=== PATIENT | female | born 1985 | race Caucasian/White ===

== ENCOUNTER → 2020-03-23 10:26 | Outpatient (BNVA) | payer BC, SELFPAY | PROVIDERS: Family Provider Nurse Practitioner Family; Visit Provider Family Medicine | DX: R53.83 Other fatigue (principal); Z80.8 Family history of malignant neoplasm of other organs or systems; Z13.29 Encounter for screening for other suspected endocrine disorder | CPT/HCPCS: 80053; 80061; 82607; 82652; 84443; 85025 ==

== ENCOUNTER 2020-07-11 07:14 | Outpatient (CLI) | payer BC, SELFPAY | END 2020-07-11 07:15 | disposition home or self-care (01) | LOC: LAB 07:17 | PROVIDERS: Visit Provider Family Medicine | DX: R53.83 Other fatigue (principal) | CPT/HCPCS: 82533 ==

== ENCOUNTER → 2021-11-23 11:31 | Outpatient (BNVA) | payer BC, SELFPAY | PROVIDERS: PCP Family Medicine; Visit Provider Family Medicine | DX: F41.1 Generalized anxiety disorder (principal); R05.3 Chronic cough; U09.9 Post COVID-19 condition, unspecified | CPT/HCPCS: 71046 ==

== ENCOUNTER → 2022-01-02 11:27 | Outpatient (BNVA) | payer BC, SELFPAY | PROVIDERS: PCP Family Medicine; Visit Provider Family Medicine | DX: F41.1 Generalized anxiety disorder (principal); R53.83 Other fatigue; F51.04 Psychophysiologic insomnia; R53.82 Chronic fatigue, unspecified | CPT/HCPCS: 80053; 82607; 82652; 84443; 85025; 85651; 86140 ==

== ENCOUNTER 2022-02-08 15:53 | Emergency (ER) | payer BC, SELFPAY ==
--- NOTE | 2022-02-08 15:57 | XRR_ITS ---
PROCEDURE INFORMATION: Exam: XR Chest Exam date and time: 02/08/2022 5:43 PM Age: 36 years old Clinical indication: Chest wall pain; Additional info: Chest pain TECHNIQUE: Imaging protocol: Radiologic exam of the chest. Views: 1 view. COMPARISON: CR XR chest 2V* [id number] 11/23/2021 11:44 AM FINDINGS: Lungs: The lungs are clear. Pleural spaces: Unremarkable. No pleural effusion. No pneumothorax. Heart/Mediastinum: Unremarkable. No cardiomegaly. Bones/joints: Unremarkable. XR/XR chest 1V portable [id number] IMPRESSION: No acute cardiopulmonary abnormality.
[2022-02-08 15:58] VITALS: BP 114/81; PULSE 79; RESP 14; TEMP 36.7; O2SAT 97; BMI 31.7
--- NOTE | 2022-02-08 17:50 | ECG_ITS ---
[facility] Test Date: 2022-02-08 Pat Name: Cherrie Robles Department: Room: Gender: Female Sales Advisor: : 1985 Requested By: Anna Morales Order Number: [id number] Stevie MD: Gene Jackson M.D. Measurements Intervals [place] Rate: 67 P: 25 KS: 172 QRS: 23 QRSD: 84 T: 5 QT: 366 QTc: 388 Interpretive Statements SINUS RHYTHM Compared to ECG 02/08/2022 16:10:17 No significant changes Electronically Signed On 02-08-2022 21:29:41 CDT by Gene Jackson M.D. [id number]
--- NOTE | 2022-02-08 18:30 | W.ED.CHESTPA ---
HPI - Chest Pain General: Chief Complaint: Chest Pain Stated Complaint: Chest pain Time Seen by Provider: 02/08/22 17:38 Source: patient Mode of arrival: ambulatory Limitations: no limitations History of Present Illness: 36-year-old female who states that over the last few months she has been having these intermittent sharp chest pains. States she started having pains again today states that very sharp pain worse with deep breaths and. She has a history of mitral valve prolapse no history of heart issues otherwise. She denies any worsening improving factors. Associated symptoms: Deny abdominal pain, dyspnea, fever(s), nausea or vomiting Review of Systems Const: Denies: fever(s), chills, body aches or change in appetite Eyes: Denies: blurry vision or eye discomfort ENMT: Denies: throat pain or dental pain Card: Reports: chest pain Resp: Denies: dyspnea GI: Denies: abdominal pain, nausea, vomiting or diarrhea : Denies: dysuria Musc: Denies: neck pain or back pain Skin/Breast: Denies: rash Neuro: Denies: headache(s) Psych: Denies: depression Dutch/Lymph: Denies: easy bruising All/Imm: Denies: urticaria PFSH ED PFSH: Surgical History Hx of tonsillectomy Family History Mother Cancer Thyroid cancer Social History Smoking and tobacco status: current every day smoker (1/2 PPD) cigarettes Packs smoked per day: 1.5 Alcohol intake: current Alcohol intake frequency: holidays/special occasions only History of recent travel: No Current gender identity: Female Female Reproductive History: Spontaneous abortions: No Physical Exam Const: COMMON NORMALS: no acute distress, patient oriented x3 and healthy appearing HENMT: COMMON NORMALS: normocephalic and atraumatic HEAD & SCALP: normocephalic and atraumatic Eye: COMMON NORMALS: Equal, round and reactive pupils present and EOMs intact bilaterally PUPIL: Yes Equal, round and reactive pupils present Neck/C-Spine: COMMON NORMALS: full ROM and supple Chest: COMMONS NORMALS: normal inspection of the chest and normal palpation of entire chest wall Resp: COMMON NORMALS: normal respiratory effort, No retractions, No use of accessory muscles and clear to auscultation bilaterally AUSCULTATION: clear to auscultation bilaterally Cardio: COMMON NORMALS: regular rate, regular rhythm and No murmurs present (Cardio) RATE: regular rate RHYTHM: regular rhythm GI: COMMON NORMALS: Normal to inspection, nondistended, normoactive bowel sounds present, Soft to palpation, non-tender and no masses PALPATION: Yes Soft to palpation Extremity: COMMON NORMALS: normal to inspection and full ROM Neuro: COMMON NORMALS: patient oriented x3, moves all extremities and no focal motor deficits Psych: COMMON NORMALS: mental status grossly normal, Normal thought process present and cooperative THOUGHT PROCESS: Normal thought process present Skin: COMMON NORMALS: no rashes or lesions noted and no wounds GENERAL SKIN EXAM: no rashes or lesions noted Course Vital Signs: Vital signs: Vital Signs Temperature 98.1 F 02/08/22 15:58 Pulse Rate 79 02/08/22 15:58 Respiratory Rate 14 02/08/22 15:58 Blood Pressure 114/81 02/08/22 15:58 Pulse Oximetry 97 02/08/22 15:58 Oxygen Delivery Me thod 02/08/22 15:58 MDM - Chest Pain Medical Decision Making Patient presents here with chest pain is atypical in nature patient's well-appearing here her D-dimer and troponin here are negative EKG and x-ray is negative as well she is asymptomatic currently she stable for discharge we will get her follow-up with cardiology she is return if worsening she understands agrees to plan. Lab Data : 02/08/22 18:35 02/08/22 15:57 Radiology Impressions Chest X-Ray 02/08/22 15:57 IMPRESSION: No acute cardiopulmonary abnormality. Laboratory Results WBC 8.0 10^3/uL (4.0-10.0) 02/08/22 18:35 RBC 4.46 10^6/uL (4.1-5.3) 02/08/22 18:35 Hgb 13.1 g/dL (11.5-15.3) 02/08/22 18:35 Hct 39.9 % (37.0-47.0) 02/08/22 18:35 MCV 89.5 fl (81-99) 02/08/22 18:35 MCH 29.4 pg (28.0-34.0) 02/08/22 18:35 MCHC 32.8 g/dL (30.0-36.0) 02/08/22 18:35 RDW 12.6 % (12.1-15.1) 02/08/22 18:35 Plt Count 290 10^3/cmm (130-400) 02/08/22 18:35 MPV 10.1 fL (7.4-10.4) 02/08/22 18:35 Neut % (Auto) 59.0 % 02/08/22 18:35 Lymph % (Auto) 32.1 % 02/08/22 18:35 [place] % (Auto) 6.3 % 02/08/22 18:35 Eos % (Auto) 1.6 % 02/08/22 18:35 Baso % (Auto) 0.6 % 02/08/22 18:35 Neut # (Auto) 4.70 10^3/uL (1.8-7.7) 02/08/22 18:35 Lymph # (Auto) 2.6 10^3/uL (0.8-4.8) 02/08/22 18:35 [place] # (Auto) 0.5 10^3/uL (0.2-0.9) 02/08/22 18:35 Eos # (Auto) 0.1 10^3/uL (0.0-0.8) 02/08/22 18:35 Baso # (Auto) 0.1 10^3/uL (0.0-0.1) 02/08/22 18:35 Nucleated RBC % (auto) 0 % 02/08/22 18:35 Nucleated RBCs # 0.0 /100WBC 02/08/22 18:35 D-Dimer 0.40 ug/mIFEU (0-0.59) 02/08/22 18:35 Sodium 137 mmol/L (136-145) 02/08/22 15:57 Potassium 3.8 mmol/L (3.5-5.1) 02/08/22 15:57 Chloride 99 mmol/L (98-107) 02/08/22 15:57 Carbon Dioxide 21 mmol/L (22-29) L 02/08/22 15:57 Anion Gap 20.8 (5-19) H 02/08/22 15:57 BUN 12 mg/dL (6-20) 02/08/22 15:57 Creatinine 0.4 mg/dL (0.5-0.9) L 02/08/22 15:57 GFR Calculation 181.6 mL/min (90-130) H 02/08/22 15:57 Glucose 82 mg/dL (65-115) 02/08/22 15:57 Calculated Osmolality 283 mOsm/kg (285-295) L 02/08/22 15:57 Calcium 9.0 mg/dL (8.5-10.5) 02/08/22 15:57 Total Bilirubin 0.2 mg/dL (0.15-1.2) 02/08/22 15:57 AST 11 U/L (0-32) 02/08/22 15:57 ALT 15 U/L (0-33) 02/08/22 15:57 Alkaline Phosphatase 50 IU/L (35-105) 02/08/22 15:57 Troponin T Baseline 6 ng/L (0-10) 02/08/22 18:35 Total Protein 6.7 g/dL (6.6-8.7) 02/08/22 15:57 Albumin 4.5 g/dL (3.5-5.2) 02/08/22 15:57 Globulin 2.2 g/dL (1.3-4.6) 02/08/22 15:57 HCG, Qual Negative (Negative) 02/08/22 18:35 Discharge Plan Discharge Patient Disposition: Home Clinical Impression: Chest pain Qualifiers: Chest pain type: unspecified Qualified Code(s): R07.9 - Chest pain, unspecified Condition: Stable Prescriptions: New Naprosyn 500 mg tablet 500 mg PO BID PRN (Reason: pain) Qty: 20 0RF No Action fluoxetine 20 mg tablet 20 mg PO DAILY 30 Days Qty: 30 2RF hydroxyzine HCl 25 mg tablet 25 mg PO BID PRN (Reason: anxiety) 30 Days Qty: 30 1RF Rx Instructions: NEEDED FOR PANIC/ANXIETY may cause sleepiness Discharge Orders: Discharge ED (Routine); Ordered 02/08/22 Ordered By: Martinez Babcock Referrals: Fran Alvarez MD [Physician] - 1-3 days Rose Marie Acosta MD [Primary Care Provider] - Discharge Diet: Advance as tolerated Discharge Activity: Resume usual activity Patient Instructions: Chest Pain (ED) Coding Level of Care Code ED Licensed Practical Nurse Clinic Nurse for Chg Fwd Exam Comprehensive
[2022-02-08 18:47] LABS: Basophils # 0.1 10^3/uL (0.0-0.1); Basophils % 0.6 %; Eosinophils # 0.1 10^3/uL (0.0-0.8); Eosinophils % 1.6 %; Hematocrit 39.9 % (37.0-47.0); Hemoglobin 13.1 g/dL (11.5-15.3); Lymphocytes # 2.6 10^3/uL (0.8-4.8); Lymphocytes % 32.1 %; Mean Corpuscular HGB Conc 32.8 g/dL (30.0-36.0); Mean Corpuscular Hemoglobin 29.4 pg (28.0-34.0); Mean Corpuscular Volume 89.5 fl (81-99); Mean Platelet Volume 10.1 fL (7.4-10.4); Monocytes # 0.5 10^3/uL (0.2-0.9); Monocytes % 6.3 %; Nucleated Red Blood Cells % 0 %; Platelet Count 290 10^3/cmm (130-400); Red Blood Count 4.46 10^6/uL (4.1-5.3); Red Cell Distribution Width 12.6 % (12.1-15.1)
[2022-02-08 19:17] LABS: Troponin(5th) Baseline 6 ng/L (0-10)
--- NOTE | 2022-02-08 19:22 | PC.NURSE ---
REPORT GIVEN TO JAIRO ROBLES ASSUMED CARE.
[2022-02-08 19:25] LABS: Alanine Aminotransferase 15 U/L (0-33); Albumin Level 4.5 g/dL (3.5-5.2); Alkaline Phosphatase 50 IU/L (35-105); Anion Gap 20.8 (5-19); Aspartate Amino Transferase 11 U/L (0-32); Blood Urea Nitrogen 12 mg/dL (6-20); Carbon Dioxide 21 mmol/L (22-29); Chloride 99 mmol/L (98-107); Globulin 2.2 g/dL (1.3-4.6); Glomerular Filtration Rate 181.6 mL/min (90-130); Glucose 82 mg/dL (65-115); Osmolality Calculated 283 mOsm/kg (285-295); Potassium 3.8 mmol/L (3.5-5.1); Sodium 137 mmol/L (136-145); Total Bilirubin 0.2 mg/dL (0.15-1.2); Total Protein 6.7 g/dL (6.6-8.7)
[2022-02-08 19:47] LABS: HCG, Serum Qual Negative (Negative)
--- NOTE | 2022-02-08 21:57 | ECG_ITS ---
[facility] Test Date: 2022-02-08 Pat Name: Cherrie Robles Department: Room: Gender: Female Career Technical Education Teacher: : 1985 Requested By: Anna Morales Order Number: [id number] Stevie MD: Marta Colon M.D. Measurements Intervals [place] Rate: 76 P: 34 HI: 157 QRS: 39 QRSD: 80 T: 51 QT: 350 QTc: 394 Interpretive Statements SINUS RHYTHM No previous ECG available for comparison Electronically Signed On 02-09-2022 10:39:28 CDT by Marta Colon M.D. [id number]
--- NOTE | 2022-02-10 17:06 | DCPLANNER ---
Addendum entered by Oly Loredo 04/06/22 09:03: Patient had a follow up appointment scheduled with heart care - patient did attend appointment Addendum entered by Oly Loredo 02/13/22 12:30: Patient has a follow up appointment scheduled for , April 05, 2022 at 10:[address] Colon at [facility]. Clinic will call patient with appointment information. Original Note: group exercise manager had message to schedule a follow up appointment for patient with cardiology. group exercise manager sent patients information to the front office staff at [facility]. Patients information will be printed and reviewed. Clinic will call patient with appointment information.
== END 2022-02-08 19:39 | disposition home or self-care (01) ==
PROVIDERS: Physician Assistant; Emergency Provider Emergency Medicine; PCP Family Medicine
DX: R07.9 Chest pain, unspecified (principal); F17.210 Nicotine dependence, cigarettes, uncomplicated
CPT/HCPCS: 71045; 80053; 84484; 84703; 85025; 85378; 93005; 99285

== ENCOUNTER 2022-05-10 14:26 | Outpatient (CLI) | payer BC, SELFPAY ==
--- NOTE | 2022-05-10 15:00 | USCV_ITS ---
Margaret Cherrie Age: 36 Gender: F : 1985 Exam Date: 05/10/2022 14:43 Ordering Phys: Rose Marie Acosta MD Technologist: Torito Rob Exam Location: [facility] [place] Indication: Mitral valve prolapse BP: 111 / 78 HR: 72 Rhythm: Sinus Technical Quality: Adequate MEASUREMENTS (Male / Female) Normal Values 2D ECHO LV Diastolic Diameter PLAX 4.0 cm 4.2 - 5.9 / 3.9 - 5.3 cm LV Systolic Diameter PLAX 2.5 cm IVS Diastolic Thickness 0.8 cm 0.6 - 1.0 / 0.6 - 0.9 cm IVS Systolic Thickness 1.0 cm LVPW Diastolic Thickness 1.0 cm 0.6 - 1.0 / 0.6 - 0.9 cm LVPW Systolic Thickness 1.2 cm LVOT Diameter 2.0 cm LV Ejection Fraction 2D Teich 68.5 % LV Ejection Fraction MOD 2C 63.6 % LV Ejection Fraction 2C AL 64.1 % LA Diameter 3.4 cm LA Width 3.5 cm LA Height 4.5 cm RA Width 2.9 cm RA Height 4.7 cm Aorta at Sinotubular Diameter 2.1 cm IVC Diameter 1.9 cm M-MODE Aortic Annulus Diameter 2.4 cm LA Ao Ratio MM 1.6 MV E Point Septal Separation 0.5 cm DOPPLER AV Peak Velocity 133.0 cm/s LVOT Peak Velocity 109.0 cm/s AV Area Cont Eq vti 2.3 cm squared AV Area Cont Eq pk 2.6 cm squared MV Peak Velocity 106.0 cm/s MV Area PHT 5.8 cm squared Mitral E to A Ratio 1.3 MV E' Velocity 57.0 cm/s Mitral E to MV E' Ratio 6.7 Mitral E to LV E' Lateral Ratio 5.5 Mitral E to LV E' Septal Ratio 8.6 TR Peak Velocity 265.9 cm/s TR Peak Gradient 28.3 mmHg TR Mean Velocity 227.6 cm/s TR Mean Gradient 21.3 mmHg TR Velocity Time Integral 74.7 cm Right Atrial Pressure 3.0 mmHg Pulmonary Artery Systolic Pressu 31.3 mmHg PV Peak Velocity 125.7 cm/s RV Acceleration Time 0.1 s RV Ejection Time 0.3 s RV AcT/ET 0.5 FINDINGS Left Ventricle Normal left ventricular size, systolic function and wall thickness, with no regional wall motion abnormalities. Left ventricular ejection fraction is estimated at 65-70 %. Normal diastolic function. Right Ventricle Normal right ventricular size and systolic function. Right ventricular systolic pressure 33 mmHg. Right Atrium Normal right atrial size. Left Atrium Mildly increased left atrial size. Mitral Valve Moderately thickened mitral valve. No mitral valve prolapse. No mitral valve stenosis. Trace mitral valve regurgitation. Aortic Valve Structurally normal trileaflet aortic valve. No aortic valve stenosis. No aortic valve regurgitation. Tricuspid Valve Structurally normal tricuspid valve. No tricuspid valve stenosis. Mild tricuspid valve regurgitation. Pulmonic Valve Structurally normal pulmonic valve. No pulmonary valve stenosis. Trace pulmonary valve regurgitation. Pericardium No pericardial effusion. Aorta Normal size aortic root and proximal ascending aorta. IVC Normal IVC dimension with >50% respiratory change of the inferior vena cava. CONCLUSIONS 1. Normal left ventricular size, systolic function and wall thickness, with no regional wall motion abnormalities. Left ventricular ejection fraction is estimated at 65-70 %. Normal diastolic function. 2. Moderately thickened mitral valve. No mitral valve prolapse. Trace mitral valve regurgitation. 3. Pulmonary artery pressure estimated at 33 mm Hg. 4. No prior similar studies to compare. Marta Colon MD (Electronically Signed) Final Date: 13 May 2022 09:38 S
--- NOTE | 2022-05-10 15:12 | XR_ITS ---
WS: [id number] Exam: XR thoracic spine 3V* [id number] Date/Time of Exam: 05/10/2022 3:13 PM Reason For Exam: M54.6 - Pain in thoracic spine No fracture or dislocation. No scoliosis. Disc spaces are preserved. Normal paraspinal soft tissues. XR/XR thoracic spine 3V* [id number] IMPRESSION: 1. Unremarkable T-spine study
--- NOTE | 2022-05-10 15:12 | XR_ITS ---
WS: [id number] Exam: XR cervical spine 3V* [id number] Date/Time of Exam: 05/10/2022 3:13 PM Reason For Exam: N62 - Hypertrophy of breast No fracture or dislocation. There is straightening and slight reversal of the normal cervical lordosi s. Disc spaces are well preserved. Posterior elements are intact. The odontoid appears normal. Unrema rkable paraspinal soft tissues. XR/XR cervical spine 3V* [id number] IMPRESSION: 1. No acute fracture or malalignment. 2. Straightening and slight reversal of the normal cervical lordosis.
== END 2022-05-10 14:27 | disposition home or self-care (01) ==
LOC: RAD 14:26
PROVIDERS: PCP Family Medicine; Visit Provider Family Medicine
DX: M54.6 Pain in thoracic spine (principal); N62 Hypertrophy of breast; I34.1 Nonrheumatic mitral (valve) prolapse; R53.83 Other fatigue
CPT/HCPCS: 72040; 72072; 93306

== ENCOUNTER 2022-05-28 12:24 | Outpatient (CLI) | payer BC, SELFPAY ==
--- NOTE | 2022-05-28 | ECG_ITS ---
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 Interpretive Statements NAME OF STUDY: TREADMILL STRESS TEST INDICATION: Chest Pain PROCEDURE: At the baseline, the patient's blood pressure was 107/65 mm Hg with a heart rate of 61 bpm. The baseline electrocardiogram showed normal sinus rhythm with normal ST-Ts. ??? The patient exercised for 9 minutes and 23 seconds on a [standard Robert protocol]. Patient attained a maximum heart rate of 178 beats per minute( 96 % of the maximum predicted heart rate) with a blood pressure at the peak exercise of 177/56 mm Hg. The EKG at the peak exercise revealed sinus tachycardia with no significant ST-T wave changes. Patient did not have any chest pain or any significant cardiac arrhythmias with the exercise. ??? During the recovery phase, there were no new changes. ??? Blood pressure at the end of the recovery phase was 134/45 mm Hg with a heart rate of 87 beats per minute. ??? CONCLUSION: 1. Normal EKG response to treadmill exercise. 2. No exercise-induced chest pain or cardiac arrhythmia. 3. Excellent exercise tolerance, attained a maximum of 13.5 METs Electronically Signed On 06-01-2022 13:13:53 CAR BRACER by Marta Colon M.D. [id number]
[2022-05-28 12:57] VITALS: BMI 28.6
[2022-05-28 14:04] VITALS: BP 146/41; PULSE 88
== END 2022-05-28 12:25 | disposition home or self-care (01) ==
LOC: CDL 12:26
PROVIDERS: PCP Family Medicine; Visit Provider Internal Medicine Cardiovascular Disease
DX: R07.9 Chest pain, unspecified (principal)
CPT/HCPCS: 93017

== ENCOUNTER 2022-07-14 19:40 | Emergency (ER) | payer BC, SELFPAY ==
[2022-07-14 19:43] VITALS: BP 153/87; PULSE 89; RESP 16; TEMP 36.9; O2SAT 100; BMI 27.1
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
[2022-07-14 20:01] VITALS: BP 153/87; PULSE 88; RESP 21; O2SAT 100
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
[2022-07-14 20:56] LABS: ABG PCO2 43.8 mmHg (35-45); Alveolar-Arterial Oxygen Gradi 2.4 mmHg (5-10); Arterial Blood Gas Hematocrit 33.6 % (37-47); Base Excess ABG 2.2 mmol/L (-2.0-2.0); Blood Gas Allen Test Pos; Blood Gas Sample Site Radial, right; Blood Gas Sample Type Arterial; HCO3 ABG 27.3 mmol/L (22-26); HGB O2 Sat 94.5 % (95-100); Ionized Calcium Level - ABG 1.2 mmol/L (1.1-1.4); Methemoglobin 0.9 % (0.4-1.5); Oxygen Saturation ABG 96.4; PO2 ABG 76.4 mmHg (80.0-100.0); Potassium Level - ABG 3.4 mmol/L (3.5-5.0); Total Hemoglobin 10.9 g/dL (12-16)
[2022-07-14 21:04] LABS: Basophils % 0.3 %; Eosinophils # 0.1 10^3/uL (0.0-0.8); Hemoglobin 10.9 g/dL (11.5-15.3); Lymphocytes % 21.2 %; Mean Corpuscular HGB Conc 32.1 g/dL (30.0-36.0); Mean Corpuscular Hemoglobin 29.3 pg (28.0-34.0); Mean Corpuscular Volume 91.4 fl (81-99); Mean Platelet Volume 9.9 fL (7.4-10.4); Monocytes # 0.7 10^3/uL (0.2-0.9); Neutrophils # 6.71 10^3/uL (1.8-7.7); Neutrophils % 70.3 %; Nucleated Red Blood Cells % 0 %; Platelet Count 238 10^3/cmm (130-400); Red Blood Count 3.72 10^6/uL (4.1-5.3); Red Cell Distribution Width 12.7 % (12.1-15.1); White Blood Count 9.6 10^3/uL (4.0-10.0)
[2022-07-14 21:25] LABS: Alanine Aminotransferase 11 U/L (0-33); Albumin Level 3.9 g/dL (3.5-5.2); Alkaline Phosphatase 56 U/L (35-105); Anion Gap 12.4 (5-19); Aspartate Amino Transferase 10 U/L (0-32); Blood Urea Nitrogen 13 mg/dL (6-20); Calcium 8.8 mg/dL (8.5-10.5); Carbon Dioxide 25 mmol/L (22-29); Chloride 102 mmol/L (98-107); Globulin 2.7 g/dL (1.3-4.6); Glomerular Filtration Rate 113.8 mL/min (90-130); Glucose 96 mg/dL (65-115); Osmolality Calculated 282 mOsm/kg (285-295); Potassium 3.4 mmol/L (3.5-5.1); Sodium 136 mmol/L (136-145); Total Bilirubin 0.3 mg/dL (0.15-1.2); Total Protein 6.6 g/dL (6.6-8.7)
[2022-07-14] MEDS: dexamethasone 10 mg/mL INJ IVP (21:57)
[2022-07-14 22:10] VITALS: BP 127/88; PULSE 83; RESP 15; O2SAT 99
== END 2022-07-14 22:09 | disposition home or self-care (01) ==
PROVIDERS: Emergency Provider Family Medicine; PCP Family Medicine
DX: S59.811A Other specified injuries right forearm, initial encounter (principal); F17.210 Nicotine dependence, cigarettes, uncomplicated; X00.0XXA Exposure to flames in uncontrolled fire in building or structure, initial encounter
CPT/HCPCS: 36600; 70491; 71045; 80051; 80053; 82330; 82805; 85025; 96374; 99285; J1100; Q9967

== ENCOUNTER → 2022-07-18 11:07 | Outpatient (BNVA) | payer BC, SELFPAY | PROVIDERS: PCP Family Medicine; Visit Provider Family Medicine | DX: F41.1 Generalized anxiety disorder (principal); F51.04 Psychophysiologic insomnia; J06.9 Acute upper respiratory infection, unspecified; B97.89 Other viral agents as the cause of diseases classified elsewhere; J98.8 Other specified respiratory disorders; T59.811A Toxic effect of smoke, accidental (unintentional), initial encounter | CPT/HCPCS: 87400; 87426 ==

== ENCOUNTER → 2023-02-12 11:16 | Outpatient (BNVA) | payer BC, SELFPAY | PROVIDERS: PCP Family Medicine; Visit Provider Family Medicine | DX: F41.1 Generalized anxiety disorder (principal); D64.9 Anemia, unspecified; Z13.220 Encounter for screening for lipoid disorders; Z13.6 Encounter for screening for cardiovascular disorders; Z13.1 Encounter for screening for diabetes mellitus; F51.04 Psychophysiologic insomnia; D50.8 Other iron deficiency anemias; R03.0 Elevated blood-pressure reading, without diagnosis of hypertension | CPT/HCPCS: 80053; 80061; 83540; 85025 ==

== ENCOUNTER → 2023-06-05 14:22 | Outpatient (BNVA) | payer BC, SELFPAY | PROVIDERS: PCP Family Medicine; Visit Provider Family Medicine | DX: J01.90 Acute sinusitis, unspecified (principal); B96.89 Other specified bacterial agents as the cause of diseases classified elsewhere; R53.83 Other fatigue; G47.10 Hypersomnia, unspecified; R53.82 Chronic fatigue, unspecified | CPT/HCPCS: 82607; 82652; 84443 ==

== ENCOUNTER → 2023-12-30 10:50 | Outpatient (BNVA) | payer BC, SELFPAY | PROVIDERS: PCP Family Medicine; Visit Provider Family Medicine | DX: F41.1 Generalized anxiety disorder (principal); F51.04 Psychophysiologic insomnia; Z68.34 Body mass index [BMI] 34.0-34.9, adult; Z13.220 Encounter for screening for lipoid disorders; Z13.6 Encounter for screening for cardiovascular disorders; Z13.1 Encounter for screening for diabetes mellitus; R03.0 Elevated blood-pressure reading, without diagnosis of hypertension; M54.12 Radiculopathy, cervical region | CPT/HCPCS: 80053; 80061 ==

== ENCOUNTER → 2024-04-29 10:06 | Outpatient (BNVA) | payer BC, SELFPAY | PROVIDERS: PCP Family Medicine; Visit Provider Emergency Medicine | DX: R68.89 Other general symptoms and signs (principal) | CPT/HCPCS: 87400; 87426 ==

== ENCOUNTER 2024-05-03 14:07 | Emergency (ER) | payer BC, SELFPAY ==
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
[2024-05-03 14:22] VITALS: BP 99/71; PULSE 134; RESP 17; TEMP 39.4; O2SAT 98; BMI 29.2
--- NOTE | 2024-05-03 14:37 | ED_ITS ---
HPI - URI/Sore Throat 2 General: Chief Complaint: Upper Respiratory Infection Stated Complaint: cough, fever Time Seen by Provider: 05/03/24 14:32 History of Present Illness: 38-year-old female who presents emergenc y room with cough, fever and bodyaches. She has been sick for several days now. She is febrile on presentation. She says she does not feel short of breath. No nausea or vomiting. She saw her doctor earlier in the week and was not given anything. She did take some of her own amoxicillin. From a previous infection. Related Data Home Medications Medication Instructions Recorded Confirmed alpha lipoic acid 600 mg tablet 600 mg PO DAILY 10/04/23 04/29/24 Previous Rx's Medication Instructions Recorded [id number]-[id number] 3.5 4 drp otic (ear) Q8H 10 days #10 mL 10/07/23 mg-10,000 unit/mL-1 % ear drops,susp fluoxetine 10 mg capsule 10 mg PO DAILY 90 days #90 caps 12/30/23 fluoxetine 20 mg capsule 20 mg PO DAILY 90 days #90 caps 12/30/23 trazodone 50 mg tablet 50 mg PO .at bedtime 90 days #90 12/30/23 tabs oseltamivir 75 mg capsule (Tamiflu) 75 mg PO BID 5 days #10 caps 04/29/24 promethazine-DM 6.25 mg-15 mg/5 mL 7.5 ml PO Q6H PRN cough #118 mL 04/29/24 oral syrup doxycycline monohydrate 100 mg 100 mg PO BID 10 days #20 caps 05/03/24 capsule Allergies Allergy/AdvReac Type Severity Reaction Status Date / Time No Known Allergies Allergy Verified 05/03/24 14:27 Review of Systems 2 Narrative: Constitutional symptoms: Negative except as documented in HPI. Skin symptoms: Negative except as documented in HPI. Eye symptoms: Negative except as documented in HPI. ENMT symptoms: Negative except as documented in HPI. Respiratory symptoms: Negative except as documented in HPI. Cardiovascular symptoms: Negative except as documented in HPI. Gastrointestinal symptoms: Negative except as documented in HPI. Genitourinary symptoms: Negative except as documented in HPI. Musculoskeletal symptoms: Negative except as documented in HPI. Neurologic symptoms: Negative except as documented in HPI. Psychiatric symptoms: Negative except as documented in HPI. Endocrine symptoms: Negative except as documented in HPI. PFSH ED 2 PFSH: Medical History Mitral valve prolapse Surgical History Hx of tonsillectomy Family History Mother Cancer Thyroid cancer Social History Smoking and tobacco/nicotine status: never used tobacco/nicotine Alcohol intake: current Alcohol intake frequency: holidays/special occasions only Substance/Drug Use: never Current gender identity: Female Female Reproductive History: Spontaneous abortions: No Physical Exam 2 Narrative: EXAM NARRATIVE: General: Alert, no acute distress. Skin: Warm, dry. Head: Normocephalic, atraumatic. Neck: Supple, trachea midline. Eye: Extraocular movements are intact. Ears, nose, mouth and throat: mucosa moist. Cardiovascular: Regular, tachycardic, normal peripheral perfusion. Respiratory: Lungs are clear to auscultation, respirations are non-labored, breath sounds are equal, Symmetrical chest wall expansion. Gastrointestinal: Soft, Nontender, Non distended Musculoskeletal: Normal ROM, no deformity. Neurological: Alert and oriented, No focal neurological deficit observed. Psychiatric: Cooperative, appropriate mood & affect. Course 2 Vital Signs: Vital signs: Vital Signs Temperature 102.9 F H 05/03/24 14:22 Pulse Rate 107 H 05/03/24 17:01 Respiratory Rate 22 H 05/03/24 17:01 Blood Pressure 122/76 05/03/24 17:01 Pulse Oximetry 91 05/03/24 17:01 Oxygen Delivery Me thod Room Air 05/03/24 16:30 MDM - URI/Sore Throat Medical Decision Making Differential diagnosis for patient with s cough, malaise and fever includes but is not limited to and based on the above HPI, review of systems and physical exam: Pneumonia. Bronchitis. Asthma or COPD with acute exacerbation. Viral infections including influenza and Covid-19. Orders placed to evaluate differential diagnosis based on the above differential, HPI and physical exam Chest x-ray: There is a left-sided infiltrate that appears to be a pneumonia particularly given her history and exam. No pneumothorax. No cardiomegaly. This was reviewed and interpreted by myself the emergency room physician. I also reviewed the radiology report. Lab Review: Laboratory results were reviewed and interpreted by myself the emergency room physician. No leukocytosis. No anemia. BUN and creatinine are normal at 14 and 0.7. Lactic acid is not elevated. Heart rate responded to fluids and ibuprofen. I reviewed the patient's medical record. Reexamination: Removed quite a bit. No increased work of breathing at discharge. Heart rate is improved. No altered mental status. Assessment and plan: Community-acquired bacterial pneumonia ?IV doxycycline and IV normal saline bolus. Patient was tachycardic and borderline hypotensive on presentation. Initial concern for sepsis. However her lactate and her white count are elevated so I do not believe she is septic. I believe the vital signs were secondary to her fever. - Discharged home - Discussed findings and plan with patient. Answered any questions. - All laboratory values were reviewed and interpreted personally by myself, the ER physician - All imaging was reviewed and interpreted personally by myself, the ER physician. - Evaluation and treatment of this problem were appropriate in the emergency setting Lab Data 05/03/24 14:46 05/03/24 14:46 Radiology Impressions Chest X-Ray 05/03/24 14:10 IMPRESSION: 1. Patchy airspace opacity in the mid to lower left lung lovett concerning for infiltrate. Laboratory Results WBC 3.70 10^3/uL (3.29-11.43) 05/03/24 14:46 RBC 4.55 10^6/uL (3.85-5.65) 05/03/24 14:46 Hgb 12.80 g/dL (11.27-16.99) 05/03/24 14:46 Hct 38.6 % (36-47) 05/03/24 14:46 MCV 84.8 fl (85-98) L 05/03/24 14:46 MCH 28.1 pg (27-33) 05/03/24 14:46 MCHC 33.2 g/dL (30-55) 05/03/24 14:46 RDW 12.6 % (12.1-15.1) 05/03/24 14:46 Plt Count 203 10^3/cmm (157-399) 05/03/24 14:46 MPV 10.0 fL (7.4-10.4) 05/03/24 14:46 Neut % (Auto) 71.8 % 05/03/24 14:46 Lymph % (Auto) 23.0 % 05/03/24 14:46 [place] % (Auto) 4.9 % 05/03/24 14:46 Eos % (Auto) 0.0 % 05/03/24 14:46 Baso % (Auto) 0.0 % 05/03/24 14:46 Neut # (Auto) 2.66 10^3/uL (1.8-7.7) 05/03/24 14:46 Lymph # (Auto) 0.9 10^3/uL (0.8-4.8) 05/03/24 14:46 [place] # (Auto) 0.2 10^3/uL (0.2-0.9) 05/03/24 14:46 Eos # (Auto) 0.0 10^3/uL (0.0-0.8) 05/03/24 14:46 Baso # (Auto) 0.0 10^3/uL (0.0-0.1) 05/03/24 14:46 Nucleated RBC % (auto) 0 % 05/03/24 14:46 Nucleated RBCs # 0.0 /100WBC 05/03/24 14:46 Sodium 135 mmol/L (136-145) L 05/03/24 14:46 Potassium 3.9 mmol/L (3.5-5.1) 05/03/24 14:46 Chloride 97 mmol/L (98-107) L 05/03/24 14:46 Carbon Dioxide 27 mmol/L (22-29) 05/03/24 14:46 Anion Gap 14.9 (5-19) 05/03/24 14:46 BUN 14 mg/dL (6-20) 05/03/24 14:46 Creatinine 0.7 mg/dL (0.5-0.9) 05/03/24 14:46 GFR Calculation 94.2 mL/min (90-130) 05/03/24 14:46 Glucose 103 mg/dL (65-115) 05/03/24 14:46 Calculated Osmolality 281 mOsm/kg (285-295) L 05/03/24 14:46 Lactic Acid 1.3 mmol/L (0.5-2.2) 05/03/24 14:46 Calcium 8.6 mg/dL (8.5-10.5) 05/03/24 14:46 Total Bilirubin 0.4 mg/dL (0.15-1.2) 05/03/24 14:46 AST 28 U/L (0-32) 05/03/24 14:46 ALT 18 U/L (0-33) 05/03/24 14:46 Alkaline Phosphatase 35 U/L (35-105) 05/03/24 14:46 C-Reactive Protein 92.3 mg/L (0.0-4.9) H 05/03/24 14:46 Total Protein 7.5 g/dL (6.6-8.7) 05/03/24 14:46 Albumin 4.2 g/dL (3.5-5.2) 05/03/24 14:46 Globulin 3.3 g/dL (1.3-4.6) 05/03/24 14:46 Urine Color Yellow (Yellow) 05/03/24 14:55 Urine Appearance Clear (CLEAR) 05/03/24 14:55 Urine pH 5.5 (5-7) 05/03/24 14:55 Ur Specific [place] 1.029 (1.005-1.030) 05/03/24 14:55 Urine Protein 1+ (Negative) A 05/03/24 14:55 Urine Glucose (UA) Negative (Normal) 05/03/24 14:55 Urine Ketones Trace (Negative) 05/03/24 14:55 Urine Blood Negative (Negative) 05/03/24 14:55 Urine Nitrate Negative (Negative) 05/03/24 14:55 Urine Bilirubin Negative (Negative) 05/03/24 14:55 Urine Urobilinogen 1.0 mg/dL (Negative) 05/03/24 14:55 Ur Leukocyte Esterase Negative (Negative) 05/03/24 14:55 Urine RBC 3-5 /hpf (0-2) 05/03/24 14:55 Urine WBC 0-5 /hpf (0-5) 05/03/24 14:55 Ur Squamous Epith Cells 6-10 /hpf (0-5) 05/03/24 14:55 Amorphous Sediment Not Reportable 05/03/24 14:55 Urine Bacteria None seen /hpf (NONE) 05/03/24 14:55 Hyaline Casts 3.71 /lpf 05/03/24 14:55 Coronavirus (PCR) Negative (Negative) 05/03/24 14:48 Influenza A (PCR) Negative (Negative) 05/03/24 14:48 Influenza Type B (PCR) Negative (Negative) 05/03/24 14:48 RSV (PCR) Negative (Negative) 05/03/24 14:48 All radiology interpretation(s) finalized by discharge Discharge Plan Discharge Patient Disposition: Home Clinical Impression: Community acquired bacterial pneumonia Condition: Stable Prescriptions: New doxycycline monohydrate 100 mg capsule 100 mg PO BID 10 Days Qty: 20 0RF No Action alpha lipoic acid 600 mg tablet 600 mg PO DAILY pppybbrh-mtbaqzyiw-[id number] 3.5-10,000-1 mg/mL-unit/mL-% drops,suspension 4 drp otic (ear) Q8H 10 Days Qty: 10 1RF Rx Instructions: both ears fluoxetine 20 mg capsule 20 mg PO DAILY 90 Days Qty: 90 3RF Rx Instructions: take with 10mg to equal 30mg fluoxetine 10 mg capsule 10 mg PO DAILY 90 Days Qty: 90 3RF Rx Instructions: take with 20mg to equal 30mg trazodone 50 mg tablet 50 mg PO .at bedtime 90 Days Qty: 90 2RF promethazine-DM 6.25-15 mg/5 mL syrup 7.5 ml PO Q6H PRN (Reason: cough) Qty: 118 0RF oseltamivir [Tamiflu] 75 mg capsule 75 mg PO BID 5 Days Qty: 10 0RF Discharge Orders: Discharge ED (Routine); Ordered 05/03/24 Ordered By: Rachna Liao Referrals: Rose Marie Acosta MD [Primary Care Provider] - Discharge Diet: Usual diet Discharge Activity: Increase activity as tolerated Patient Instructions: Community Acquired Pneumonia (ED) Activity Restrictions/Additional Instructions: Thank you for choosing [facility] for your healthcare needs today. Please realize this is an emergency room and that we are providing you with a medical screening exam and this may not be complete and all inclusive of all the testing and or work up that you may need to determine your ailment or severity of your illness. You have been screened and evaluated and felt safe for discharge. Health conditions do change or evolve sometimes and as such it is important that you follow up with your Primary Doctor to be re checked, 3-5 days is a general good time frame for follow up. You are always welcome to return to the ED for re assessment if your symptoms are worsening or you have new concerns Coding Level of Care Code ED English Composition Teacher for Antonieta Liu
[2024-05-03 15:00] VITALS: BP 168/130; PULSE 117; RESP 28; O2SAT 97
[2024-05-03] MEDS: ibuprofen 600 mg Tablet PO (15:05)
[2024-05-03] MEDS: sodium chloride 0.9% 1,000 ML 999 ML IV (15:07)
[2024-05-03] MEDS: doxycycline 100 MG in sodium chloride 0.9% (plus) 100 ML IV (15:07)
[2024-05-03 15:16] LABS: Hematocrit 38.6 % (36-47); Lymphocytes # 0.9 10^3/uL (0.8-4.8); Mean Corpuscular HGB Conc 33.2 g/dL (30-55); Mean Corpuscular Hemoglobin 28.1 pg (27-33); Mean Corpuscular Volume 84.8 fl (85-98); Monocytes # 0.2 10^3/uL (0.2-0.9); Monocytes % 4.9 %; Neutrophils # 2.66 10^3/uL (1.8-7.7); Neutrophils % 71.8 %; Nucleated Red Blood Cells % 0 %; Platelet Count 203 10^3/cmm (157-399); Red Blood Count 4.55 10^6/uL (3.85-5.65); Red Cell Distribution Width 12.6 % (12.1-15.1)
[2024-05-03 15:30] VITALS: BP 124/81; PULSE 116; RESP 29; O2SAT 91
[2024-05-03 15:33] LABS: Bilirubin Urine Negative (Negative); Blood Urine Negative (Negative); Glucose Urine UA Negative (Normal); Ketones Urine Trace (Negative); Leukocyte Esterase Urine Negative (Negative); Nitrate Urine Negative (Negative); Protein Urine 1+ (Negative); Specific Gravity, Urine 1.029 (1.005-1.030); Urine Appearance Clear (CLEAR); Urine Color Yellow (Yellow); pH Urine 5.5 (5-7)
[2024-05-03 15:35] LABS: Lactic Sepsis W/Reflex 1.3 mmol/L (0.5-2.2)
[2024-05-03 15:36] LABS: Alanine Aminotransferase 18 U/L (0-33); Albumin Level 4.2 g/dL (3.5-5.2); Alkaline Phosphatase 35 U/L (35-105); Anion Gap 14.9 (5-19); Aspartate Amino Transferase 28 U/L (0-32); Blood Urea Nitrogen 14 mg/dL (6-20); C Reactive Protein 92.3 mg/L (0.0-4.9); Calcium 8.6 mg/dL (8.5-10.5); Carbon Dioxide 27 mmol/L (22-29); Chloride 97 mmol/L (98-107); Creatinine Clr Calc Pharmacy 110.5916; Globulin 3.3 g/dL (1.3-4.6); Glomerular Filtration Rate 94.2 mL/min (90-130); Glucose 103 mg/dL (65-115); Osmolality Calculated 281 mOsm/kg (285-295); Potassium 3.9 mmol/L (3.5-5.1); Sodium 135 mmol/L (136-145); Total Bilirubin 0.4 mg/dL (0.15-1.2); Total Protein 7.5 g/dL (6.6-8.7)
[2024-05-03 15:38] LABS: Bacteria Urine None Seen /hpf; Hyaline Casts Urine 3.71 /lpf; WBC Urine 0-5 /hpf (0-5)
[2024-05-03 16:00] VITALS: BP 117/78; PULSE 117; RESP 27; O2SAT 91
[2024-05-03 16:09] LABS: Covid PCR NEGATIVE (Negative); Influenza A NEGATIVE (Negative); Influenza B NEGATIVE (Negative); Respiratory Syncytial Virus Ce NEGATIVE (Negative)
[2024-05-03 16:30] VITALS: BP 114/70; PULSE 109; RESP 22; O2SAT 92
[2024-05-03 17:01] VITALS: BP 122/76; PULSE 107; RESP 22; O2SAT 91
== END 2024-05-03 17:02 | disposition home or self-care (01) ==
PROVIDERS: Emergency Provider Emergency Medicine; PCP Family Medicine
DX: J18.9 Pneumonia, unspecified organism (principal); Z11.52 Encounter for screening for COVID-19
CPT/HCPCS: 0241U; 71045; 80053; 81001; 83605; 85025; 86140; 87040; 96365; 96366; 99284; J3490; J7030

== ENCOUNTER → 2024-10-07 08:54 | Outpatient (BNVA) | payer BC, SELFPAY | PROVIDERS: PCP Family Medicine; Visit Provider Family Medicine | DX: R53.83 Other fatigue (principal); R23.8 Other skin changes; Z13.1 Encounter for screening for diabetes mellitus | CPT/HCPCS: 80053; 82607; 82652; 84443; 85025; 85651; 86038; 86140 ==